=== PATIENT | female | born 1990 | race Caucasian/White ===

== ENCOUNTER 2016-09-20 13:20 | Emergency (ER) | payer OTHER ==
[2016-09-20] MEDS ORDERED: CALNTAB (14:07)
--- NOTE | 2016-09-20 14:14 | PD ---
HPI Chief Complaint Lower abdominal pain Date Seen: Sep 20, 2016 Time Seen: 14:00 Travel History International Travel<30 Days: No Contact w/Intl Traveler<30Days: No Known Affected Area: No History of Present Illness HPI 25-year-old 1 para 0 at 18 weeks gestation with an EDC of 611 who has been experiencing lower abdominal pain for 6 hours. She states this started when she was walking across parking lot to the hospital for her shift. She denies any associated fever, anorexia, nausea, diarrhea, dysuria hematuria or frequency. She has not taken anything to alleviate the pain. Para: 0 : 1 Miscarriage: 0 : 0 History Past Medical History Medical History: Denies Significant Hx Obstetric History Obstetric History Primigravida The patient reports that it took 2 years to conceive this . She had what was thought to be an endometrioma present pre- which was still present at her anatomy ultrasound last week. This was left-sided and she thinks measures 6 cm. Past Surgical History Surgical History: No Previous Surgery Family History Family History: Negative Social History Narrative Social History , employed as a registered nurse on the seventh floor Alcohol Use: No Tobacco Use: No Substance Abuse: No Review of Systems Except as stated in HPI: all other systems reviewed are Neg Physical Exam Narrative GENERAL: Well-nourished, well-developed patient. SKIN: Warm and dry. HEAD: Normocephalic and atraumatic. EYES: No scleral icterus. No injection or drainage. ENT: No nasal drainage noted. Mucous membranes pink. Airway patent. NECK: Supple, trachea midline. No JVD. CARDIOVASCULAR: Regular rate and rhythm without murmurs, gallops, or rubs. RESPIRATORY: Breath sounds equal bilaterally. No accessory muscle use. ABDOMEN/GI: Abdomen soft, tender to deep palpation, bowel sounds present, no rebound, no guarding Gravid to [-] weeks size Fundal Height: [U -2-] GENITOURINARY: External Genitalia: intact and normal in appearance BUS glands: [-Negative] Cervix: [-] Dilatation: [Closed] Effacement: [Long-] Station: [-] Presentation: [-] Membranes: [intact] Uterine Contractions: [No-] FHT's: Category: [-] Baseline: [-150] Reactive: [-] Variability: [-] Decels: [-] EXTREMITIES: No cyanosis or edema. BACK: Nontender without obvious deformity. No CVA tenderness. NEUROLOGICAL: Awake and alert. Motor and sensory grossly within normal limits. Five out of 5 muscle strength in all muscle groups. Normal speech. Data Data Vital Signs Reviewed: Yes MDM Medical Record Reviewed: Yes Narrative Course / MDM 18 week intrauterine with lower abdominal pain without evidence of acute abdomen Plan: The patient I discussed possibility that this could represent anatomic changes associated with the endometrioma and the enlarging . I instructed her to be vigilant for any new symptoms or unrelenting pain which would require further evaluation. Diagnosis Diagnosis: Primary Impression: 18 weeks gestation of Additional Impression: Abdominal pain during in second trimester Disposition: 01 DISCHARGE HOME Luis Carlos Rivera MD Sep 20, 2016 14:14
== END 2016-09-20 14:36 | disposition home or self-care (01) ==
LOC: HOBED 13:20
DX: O26.892 Other specified pregnancy related conditions, second trimester (principal); R10.30 Lower abdominal pain, unspecified; Z3A.18 18 weeks gestation of pregnancy
CPT/HCPCS: 99284